=== PATIENT | male | born 1970 | race Caucasian/White ===

== ENCOUNTER 2019-04-18 09:28 | Emergency (ER) | payer BC ==
--- OUTSIDE RECORDS SUMMARY | 2019-04-18 09:43 | XMS REPORT | Continuity of Care Document ---
:1970 External Reference #:[id number] Author Name Sarah Gerardo MD Address [address] [place] [address] Care Team Providers Name Role Phone Sarah Gerardo MD Care Team Information Rn Dermatology Unavailable Payers Date Identification Numbers Payment Provider Subscriber Effective: 2013 Policy Number: [id number] [employer] Connie Pickering PayID: [id number] [address] [address] [place] [address] Problems Active Problems Provider Date Benign prostatic hypertrophy without outflow Sarah Gerardo MD Onset: 05/2018 obstruction Malignant tumor of colon Sarah Gerardo MD Onset: 06/27/2018 Inactive Problems No current problems or disability Onset: 05/08/2013 Inactive: 06/27/2018 Family History Date Family Member(s) Observation Comments Onset: (age 40 Years) Father Cancer, Bladder Father Diabetes, Adult Onset: (age 65 Years) Father Aneurysm, Abdominal Father Heart valve replacement Mother Diabetes, Adult Mother Hypertension Mother Hypercholesterolemia Mother Fibromyalgia First Son No Current Problems Second Son No Current Problems Social History Type Date Description Comments Sex Unknown Marital Status Occupation [employer] , coordinator of shipping ETOH Use Denies alcohol use Tobacco Use Start: Unknown Patient has never smoked Smoking Status Reviewed: 06/27/18 Patient has never smoked Allergies, Adverse Reactions, Alerts Description No Known Drug Allergies Medications Active Medications SIG Qnty Indications Ordering Provider Date Metatarsal Stress RIGHT foot size M79.671 Sarah Gerardo, 03/13/2019 Fracture Boot to fit. Aspirin 81 Low Dose 1 by mouth every Unknown 81mg day Chewtabs Iron High-Potency 1 by mouth a day Unknown 325mg Tablets B Complex 1 by mouth every Unknown Tablets day Fiber qpm-otc Unknown Powder History Medications Amoxicillin/Clavulanate 1 by mouth 20tabs K57.32 [facility], 11/22/2016 - Potassium twice a day Dave, DO 12/02/2016 500-125mg Tablets Metronidazole 1 by mouth Unknown 11/16/2016 - 500mg Tablets twice a day 11/26/2016 Levaquin 1 by mouth 10tabs J15.9 [facility], 04/29/2016 - 500mg Tablets every day Dave, DO 11/16/2016 Cheratussin ac 10ML PO Q 6 236ml J15.9 [facility], 04/29/2016 - 100-10mg/5ML Syrup Hours prn Dave, DO 11/16/2016 Cough Hydrocortisone Apply To Area 60gm [facility], 04/29/2015 - Acetate/Pramoxine tid X 2 Weeks Dave, DO 11/16/2016 1-1% [facility] - Acetate/Pramoxine HCL Rectal Area Dave, DO 04/29/2015 2.5-1&1% Kit tid X 2 Weeks Metoprolol Tartrate 1 by mouth 60tabs [facility], 02/25/2015 - 25mg Tablets twice a day Dave, DO 04/29/2016 Hydrocortisone apply 30units [facility], 05/08/2013 - 2.5% Cream rectally bid Dave, DO 04/29/2015 for 2 weeks Clobetasol Propionate apply to area 60units [facility], 05/08/2013 - 0.05% Cream bid Dave, DO 04/29/2016 Anusol-HC apply 30units [facility], 05/08/2013 - 2.5% Cream rectally bid Dave, DO 06/26/2018 for 2 weeks Clobetasol Propionate apply to area 60units [facility], 05/08/2013 - Emollient bid Dave, DO 06/26/2018 0.05% Cream Ibuprofen 2 po tid prn [facility], 10/31/2009 - 200mg Capsules Dave, DO 06/26/2018 Multi-Day Vitamins 1 po qd [facility], 10/31/2009 - Tablets Dave, DO 11/23/2015 Multi-Day Vitamins 1 po qd [place], 10/31/2009 - Tablets Dave, DO 06/26/2018 Immunizations CPT Code Status Date Vaccine Reaction Lot # [id number] Given 07/15/2018 Flu Vaccine NOS [id number] Given 06/27/2018 Pneumococcal 23 Immunization [id number] Adult Or Immunosuppressed Patient [id number] Given 06/27/2018 Tdap (Adacel) Ages 7 And [id number] Above Only [id number] Given 06/22/2017 Afluria Or Fluvirin Flu Vac Given at ,[facility] [address] Q2035 Given 06/24/2016 Afluria Imunization Given At Pharmacy RA/PW [id number] Refused 06/27/2018 Flu Vaccine NOS WILL GET AT WORK Vital Signs Date Vital Result Comment 04/10/2019 3:20pm Weight 276.00 lb Heart Rate 77 /min BP Systolic 126 mmHg BP Diastolic 88 mmHg Respiratory Rate 18 /min Height 71 inches 5'11" O2 % BldC Oximetry 97 % ra BMI (Body Mass Index) 38.5 kg/m2 03/13/2019 2:40pm Weight 283.00 lb Heart Rate 80 /min BP Systolic 114 mmHg BP Diastolic 76 mmHg Respiratory Rate 16 /min Height 71 inches 5'11" BMI (Body Mass Index) 39.5 kg/m2 06/27/2018 3:33pm Weight 273.00 lb Heart Rate 80 /min BP Systolic 112 mmHg BP Diastolic 74 mmHg Respiratory Rate 16 /min Height 71 inches 5'11" BMI (Body Mass Index) 38.1 kg/m2 11/22/2016 8:28am Weight 325.00 lb Heart Rate 92 /min BP Systolic 118 mmHg L/LG BP Diastolic 74 mmHg L/LG Respiratory Rate 19 /min Height 71.5 inches 2013 BMI (Body Mass Index) 44.7 kg/m2 04/29/2016 2:34pm Body Temperature 99.5 F Weight 323.00 lb Heart Rate 66 /min BP Systolic 128 mmHg BP Diastolic 72 mmHg Respiratory Rate 18 /min O2 % BldC Oximetry 92 % Ra 04/29/2015 3:28pm Weight 312.00 lb Heart Rate 72 /min 80 Reg BP Systolic 140 mmHg BP Diastolic 100 mmHg BP Systolic Recheck 130 mmHg BP Diastolic Recheck 80 mmHg Respiratory Rate 24 /min 02/25/2015 1:39pm Weight 301.00 lb Heart Rate 72 /min 80 Reg BP Systolic 112 mmHg BP Diastolic 70 mmHg BP Systolic Recheck 120 mmHg BP Diastolic Recheck 80 mmHg Respiratory Rate 24 /min O2 Saturation Level with Exercise 97 % Ra 05/21/2014 4:02pm Body Temperature 98.1 F Weight 284.00 lb Heart Rate 68 /min BP Systolic 120 mmHg BP Diastolic 80 mmHg Respiratory Rate 18 /min Height 71.5 inches 5'11.50" 06/14/2013 2:02pm BP Systolic 120 mmHg BP Diastolic 80 mmHg 06/14/2013 2:02pm Weight 324.00 lb Heart Rate 78 /min 72 Reg BP Systolic 120 mmHg BP Diastolic 84 mmHg Respiratory Rate 24 /min Height 71.5 inches 5'11.50" 05/08/2013 2:03pm Weight 318.00 lb Heart Rate 66 /min BP Systolic 130 mmHg BP Diastolic 80 mmHg Respiratory Rate 18 /min 10/31/2009 1:59pm BP Systolic 130 mmHg BP Diastolic 86 mmHg 10/31/2009 1:59pm Weight 322.00 lb Heart Rate 84 /min BP Systolic 136 mmHg BP Diastolic 94 mmHg Respiratory Rate 24 /min Height 72 inches 6'0" Results Test Date Facility Test Result H/L Range Note CBS 04/29/2017 [facility] White Blood 8.9 K/uL N 3.4- 10.5 1 W/Automated (315)- - Count Diff Red Blood Count 5.21 M/uL N 4.20-5.80 Hemoglobin 14.9 gm/dL N 12.8-17.0 Hematocrit 43.1 % N 38.0-48.0 Mean Cell Volume 82.7 fl N 80.0-96.0 Mean Corpuscular HGB 28.6 pg N 27.0-33.0 Mean Corpuscular HGB Conc 34.6 g/dL N 31.7-36.0 Platelet Count 237 K/uL N 150-400 Red Cell Distri Width SD 45.5 fl N 36-51 Red Cell Distri Width %CV 15.1 % N 11.6-15.8 Mean Platelet Volume 10.4 fL N 6.6-10.6 Neut% 73.7 % High 33.0-73.0 Lymph % 17.0 % Low 20.0-42.0 [place] % 6.6 % N 0.0-10.0 Eo% 2.5 % N 0.0-6.6 Bas% 0.2 % N 0.0-1.1 Neut# 6.54 K/uL N 1.8-7.0 Lymph # 1.51 K/uL N 1.0-4.0 [place] # 0.59 K/uL N 0.0-0.8 Eos # 0.22 K/uL N 0.0-0.5 Baso # 0.02 K/uL N 0.0-0.1 Iron-Tibc-%Sat 04/29/2017 [facility] Serum Iron 38 g/ dL Low 65-175 (315)- - Total Iron Binding Capacity 282 g/dL N 250-450 Transferrin %Saturation 13 % N 12-57 Laboratory test finding 04/29/2017 [facility] Ferritin 22 ng/mL Low 26-388 (315)- - Comprehensive Metabolic 04/29/2017 [facility] Glucose 104 mg/dL N 74-106 Panel (315)- - BUN 18 mg/dL N 7-18 Creatinine 1.0 mg/dL N 0.6-1.3 Glom Filtration Rate, Estimate >60 mL/min >60 If >60 mL/min >60 2 BUN/Creat 18.0 ratio Sodium 139 mmol/L N 136-145 Potassium 3.4 mmol/L Low 3.5-5.1 Chloride 104 mmol/L N 98-107 Carbon Dioxide 27 mmol/L N 21-32 Anion Gap 8 mEq/L N 8-16 Calcium 8.9 mg/dL N 8.5-10.1 Total Protein 7.2 g/dL N 6.4-8.2 Albumin 3.5 g/dL N 3.4-5.0 Globulin 3.7 g/dL N 1.9-4.3 Alb/Glob 0.9 ratio Bilirubin,Total 0.6 mg/dL N 0.2-1.0 Sgot/Ast 17 U/L N 15-37 SGPT/Alt 24 U/L N 12-78 Alkaline Phosphatase 92 U/L N 45-117 Laboratory test finding 04/29/2017 [facility] Cea 0.5 ng/ mL 3 (315)- - Basic Metabolic Panel 01/04/2017 [facility] Glucose 74 mg /dL N 74-106 4 (315)- - BUN 7 mg/dL N 7-18 Creatinine 0.8 mg/dL N 0.6-1.3 Glom Filtration Rate, Estimate >60 mL/min >60 If >60 mL/min >60 5 BUN/Creat 8.7 ratio Sodium 141 mmol/L N 136-145 Potassium 3.5 mmol/L N 3.5-5.1 Chloride 103 mmol/L N 98-107 Carbon Dioxide 31 mmol/L N 21-32 Anion Gap 7 mEq/L Low 8-16 Calcium 8.3 mg/dL Low 8.5-10.1 Laboratory test 01/04/2017 [facility] Phosphorous 1.6 mg/ dL Low 2.5-4.0 finding (315)- - Magnesium 2.3 mg/dL N 1.8-2.4 Basic Metabolic Panel 01/03/2017 [facility] Glucose 116 mg/dL High 74-106 (315)- - BUN 8 mg/dL N 7-18 Creatinine 0.9 mg/dL N 0.6-1.3 Glom Filtration Rate, Estimate >60 mL/min >60 If >60 mL/min >60 6 BUN/Creat 8.8 ratio Sodium 141 mmol/L N 136-145 Potassium 3.3 mmol/L Low 3.5-5.1 Chloride 104 mmol/L N 98-107 Carbon Dioxide 29 mmol/L N 21-32 Anion Gap 8 mEq/L N 8-16 Calcium 7.9 mg/dL Low 8.5-10.1 CBC 01/03/2017 [facility] White Blood Count 10.3 K/uL N 3.4-10.5 (315)- - Red Blood Count 4.32 M/uL N 4.20-5.80 Hemoglobin 12.2 gm/dL Low 12.8-17.0 Hematocrit 36.5 % Low 38.0-48.0 Mean Cell Volume 84.5 fl N 80.0-96.0 Mean Corpuscular HGB 28.2 pg N 27.0-33.0 Mean Corpuscular HGB Conc 33.4 g/dL N 31.7-36.0 Platelet Count 191 K/uL N 150-400 Red Cell Distri Width %CV 15.1 % N 11.6-15.8 Mean Platelet Volume 10.5 fL N 6.6-10.6 CBC 01/02/2017 [facility] White Blood Count 10.3 K/uL N 3.4-10.5 (315)- - Red Blood Count 4.12 M/uL Low 4.20-5.80 Hemoglobin 11.7 gm/dL Low 12.8-17.0 Hematocrit 34.9 % Low 38.0-48.0 Mean Cell Volume 84.7 fl N 80.0-96.0 Mean Corpuscular HGB 28.4 pg N 27.0-33.0 Mean Corpuscular HGB Conc 33.5 g/dL N 31.7-36.0 Platelet Count 182 K/uL N 150-400 Red Cell Distri Width %CV 15.2 % N 11.6-15.8 Mean Platelet Volume 10.2 fL N 6.6-10.6 Comprehensive Metabolic 01/02/2017 [facility] Glucose 106 mg/dL N 74-106 Panel (315)- - BUN 10 mg/dL N 7-18 Creatinine 1.0 mg/dL N 0.6-1.3 Glom Filtration Rate, Estimate >60 mL/min >60 If >60 mL/min >60 7 BUN/Creat 10.0 ratio Sodium 142 mmol/L N 136-145 Potassium 3.2 mmol/L Low 3.5-5.1 Chloride 104 mmol/L N 98-107 Carbon Dioxide 29 mmol/L N 21-32 Anion Gap 9 mEq/L N 8-16 Calcium 7.6 mg/dL Low 8.5-10.1 Total Protein 5.4 g/dL Low 6.4-8.2 Albumin 2.6 g/dL Low 3.4-5.0 Globulin 2.8 g/dL N 1.9-4.3 Alb/Glob 0.9 ratio Bilirubin,Total 1.1 mg/dL High 0.2-1.0 Sgot/Ast 35 U/L N 15-37 SGPT/Alt 22 U/L N 12-78 Alkaline Phosphatase 53 U/L N 45-117 Comprehensive Metabolic 01/01/2017 [facility] Glucose 135 mg/dL High 74-106 Panel (315)- - BUN 13 mg/dL N 7-18 Creatinine 1.1 mg/dL N 0.6-1.3 Glom Filtration Rate, Estimate >60 mL/min >60 If >60 mL/min >60 8 BUN/Creat 11.8 ratio Sodium 143 mmol/L N 136-145 Potassium 3.7 mmol/L N 3.5-5.1 Chloride 105 mmol/L N 98-107 Carbon Dioxide 29 mmol/L N 21-32 Anion Gap 9 mEq/L N 8-16 Calcium 7.6 mg/dL Low 8.5-10.1 Total Protein 5.7 g/dL Low 6.4-8.2 Albumin 2.7 g/dL Low 3.4-5.0 Globulin 3.0 g/dL N 1.9-4.3 Alb/Glob 0.9 ratio Bilirubin,Total 1.3 mg/dL High 0.2-1.0 Sgot/Ast 37 U/L N 15-37 SGPT/Alt 24 U/L N 12-78 Alkaline Phosphatase 62 U/L N 45-117 Laboratory test 01/01/2017 [facility] Lipase 54 U/L Low 73-393 finding (315)- - CBS W/Automated 01/01/2017 [facility] White Blood 10.9 K/ uL High 3.4-10.5 Diff (315)- - Count Red Blood Count 4.89 M/uL N 4.20-5.80 Hemoglobin 13.9 gm/dL N 12.8-17.0 Hematocrit 40.3 % N 38.0-48.0 Mean Cell Volume 82.4 fl N 80.0-96.0 Mean Corpuscular HGB 28.4 pg N 27.0-33.0 Mean Corpuscular HGB Conc 34.5 g/dL N 31.7-36.0 Platelet Count 234 K/uL N 150-400 Red Cell Distri Width SD 45.2 fl N 36-51 Red Cell Distri Width %CV 15.2 % N 11.6-15.8 Mean Platelet Volume 9.8 fL N 6.6-10.6 9 Neut# 8.74 K/uL High 1.8-7.0 Lymph # 0.96 K/uL Low 1.0-4.0 [place] # 1.14 K/uL High 0.0-0.8 Eos # 0.00 K/uL N 0.0-0.5 Baso # 0.01 K/uL N 0.0-0.1 Slide Review 01/01/2017 [facility] Slide Review DIFF ORDERED (315)- - Differential-WBC 01/01/2017 [facility] Total Cells 100 # CELLS Confirm (315)- - Counted Band% 6 % N 0-8 Neutrophils% 84 % High 33-73 Lymph% 7 % Low 20-42 Monocyte% 3 % N 0-10 Platelet Estimate NORMAL Anisocytosis 1+ Microcytosis 1+ Differential Comment FEW LRG PLTS SEE <SEE NOTE> 10 CBC 12/31/2016 [facility] White Blood Count 13.5 K/uL High 3.4-10.5 (315)- - Red Blood Count 5.13 M/uL N 4.20-5.80 Hemoglobin 14.6 gm/dL N 12.8-17.0 Hematocrit 42.0 % 38.0-48.0 Mean Cell Volume 81.9 fl N 80.0-96.0 Mean Corpuscular HGB 28.5 pg N 27.0-33.0 Mean Corpuscular HGB Conc 34.8 g/dL N 31.7-36.0 Platelet Count 220 K/uL N 150-400 Red Cell Distri Width %CV 15.1 % N 11.6-15.8 Mean Platelet Volume 10.1 fL N 6.6-10.6 Comprehensive Metabolic 12/31/2016 [facility] Glucose 180 mg/dL High 74-106 Panel (315)- - BUN 15 mg/dL N 7-18 Creatinine 1.3 mg/dL N 0.6-1.3 Glom Filtration Rate, Estimate >60 mL/min >60 If >60 mL/min >60 11 BUN/Creat 11.5 ratio Sodium 141 mmol/L N 136-145 Potassium 3.8 mmol/L N 3.5-5.1 Chloride 103 mmol/L N 98-107 Carbon Dioxide 26 mmol/L N 21-32 Anion Gap 12 mEq/L N 8-16 Calcium 7.8 mg/dL Low 8.5-10.1 Total Protein 5.9 g/dL Low 6.4-8.2 Albumin 2.9 g/dL Low 3.4-5.0 Globulin 3.0 g/dL N 1.9-4.3 Alb/Glob 1.0 ratio Bilirubin,Total 1.1 mg/dL High 0.2-1.0 Sgot/Ast 21 U/L N 15-37 SGPT/Alt 25 U/L N 12-78 Alkaline Phosphatase 66 U/L N 45-117 Ua RFX Micro & 11/27/2016 [facility] Urine Color YELLOW Yellow 12 Culture II (315)- - Urine Clarity CLEAR Clear Urine Glucose - Dipstick NEGATIVE mg/dL Negative Urine Bilirubin - Dipstick NEGATIVE Negative Urine Ketone TRACE mg/dL High Negative Urine Specific [place] 1.015 N 1.010-1.030 Urine Blood NEGATIVE Negative Urine PH 6.5 N 6.5-7.5 Urine Protein - Dipstick NEGATIVE mg/dL Negative Urine Urobilinogen - Dipstick 0.2 E.U./dL N 0.2-1.0 Urine Nitrite - Dipstick NEGATIVE Negative Urine Leuk Esterase NEGATIVE Negative Source: URINE, CLEAN CAT <SEE NOTE> 13 Comprehensive Metabolic 11/27/2016 [facility] Glucose 105 mg/dL N 74-106 Panel (315)- - BUN 14 mg/dL N 7-18 Creatinine 1.1 mg/dL N 0.6-1.3 Glom Filtration Rate, Estimate >60 mL/min >60 If >60 mL/min >60 14 BUN/Creat 12.7 ratio Sodium 140 mmol/L N 136-145 Potassium 3.3 mmol/L Low 3.5-5.1 Chloride 104 mmol/L N 98-107 Carbon Dioxide 27 mmol/L N 21-32 Anion Gap 9 mEq/L N 8-16 Calcium 8.7 mg/dL N 8.5-10.1 Total Protein 7.0 g/dL N 6.4-8.2 Albumin 3.8 g/dL N 3.4-5.0 Globulin 3.2 g/dL N 1.9-4.3 Alb/Glob 1.2 ratio Bilirubin,Total 0.9 mg/dL N 0.2-1.0 Sgot/Ast 18 U/L N 15-37 SGPT/Alt 32 U/L N 12-78 Alkaline Phosphatase 78 U/L N 45-117 Laboratory test 11/27/2016 [facility] Lipase 95 U/L N 73-393 finding (315)- - CBS W/Automated 11/27/2016 [facility] White Blood 10.4 K/ uL N 3.4-10.5 Diff (315)- - Count Red Blood Count 5.68 M/uL N 4.20-5.80 Hemoglobin 16.0 gm/dL N 12.8-17.0 Hematocrit 46.2 % N 38.0-48.0 Mean Cell Volume 81.3 fl N 80.0-96.0 Mean Corpuscular HGB 28.2 pg N 27.0-33.0 Mean Corpuscular HGB Conc 34.6 g/dL N 31.7-36.0 Platelet Count 284 K/uL N 150-400 Red Cell Distri Width SD 44.7 fl N 36-51 Red Cell Distri Width %CV 15.2 % N 11.6-15.8 Mean Platelet Volume 10.1 fL N 6.6-10.6 Neut% 80.9 % High 33.0-73.0 Lymph % 10.0 % Low 20.0-42.0 [place] % 7.5 % N 0.0-10.0 Eo% 1.3 % N 0.0-6.6 Bas% 0.3 % N 0.0-1.1 Neut# 8.40 K/uL High 1.8-7.0 Lymph # 1.04 K/uL N 1.0-4.0 [place] # 0.78 K/uL N 0.0-0.8 Eos # 0.13 K/uL N 0.0-0.5 Baso # 0.03 K/uL N 0.0-0.1 Slide Review 11/27/2016 [facility] Slide Review (SEE NOTE ) 15 (315)- - Comprehensive 11/16/2016 [facility] Glucose 90 mg/dL N 74-106 16 Metabolic Panel (315)- - BUN 18 mg/dL N 7-18 Creatinine 1.1 mg/dL N 0.6-1.3 Glom Filtration Rate, Estimate >60 mL/min >60 If >60 mL/min >60 17 BUN/Creat 16.3 ratio Sodium 141 mmol/L N 136-145 Potassium 3.6 mmol/L N 3.5-5.1 Chloride 103 mmol/L N 98-107 Carbon Dioxide 28 mmol/L N 21-32 Anion Gap 10 mEq/L N 8-16 Calcium 9.0 mg/dL N 8.5-10.1 Total Protein 7.3 g/dL N 6.4-8.2 Albumin 3.5 g/dL N 3.4-5.0 Globulin 3.8 g/dL N 1.9-4.3 Alb/Glob 0.9 ratio Bilirubin,Total 0.6 mg/dL N 0.2-1.0 Sgot/Ast 12 U/L Low 15-37 18 SGPT/Alt 25 U/L N 12-78 Alkaline Phosphatase 91 U/L N 45-117 CBS W/Automated Diff 11/16/2016 [facility] White Blood 9.3 K/uL N 3.4-10.5 (315)- - Count Red Blood Count 5.68 M/uL N 4.20-5.80 Hemoglobin 15.7 gm/dL N 12.8-17.0 Hematocrit 46.6 % N 38.0-48.0 Mean Cell Volume 82.0 fl N 80.0-96.0 Mean Corpuscular HGB 27.6 pg N 27.0-33.0 Mean Corpuscular HGB Conc 33.7 g/dL N 31.7-36.0 Platelet Count 277 K/uL N 150-400 Red Cell Distri Width SD 44.2 fl N 36-51 Red Cell Distri Width %CV 14.9 % N 11.6-15.8 Mean Platelet Volume 10.1 fL N 6.6-10.6 Neut% 75.7 % High 33.0-73.0 Lymph % 14.8 % Low 20.0-42.0 [place] % 6.8 % N 0.0-10.0 Eo% 2.4 % N 0.0-6.6 Bas% 0.3 % N 0.0-1.1 Neut# 7.04 K/uL High 1.8-7.0 Lymph # 1.38 K/uL N 1.0-4.0 [place] # 0.63 K/uL N 0.0-0.8 Eos # 0.22 K/uL N 0.0-0.5 Baso # 0.03 K/uL N 0.0-0.1 Slide Review 11/16/2016 [facility] Slide Review . 19 (315)- - Ua RFX Micro & 11/16/2016 [facility] Urine Color YELLOW Yellow Culture II (315)- - Urine Clarity CLEAR Clear Urine Glucose - Dipstick NEGATIVE mg/dL Negative Urine Bilirubin - Dipstick NEGATIVE Negative Urine Ketone TRACE mg/dL High Negative Urine Specific [place] >=1.030 N 1.010-1.030 Urine Blood NEGATIVE Negative Urine PH 6.0 Low 6.5-7.5 Urine Protein - Dipstick NEGATIVE mg/dL Negative Urine Urobilinogen - Dipstick 0.2 E.U./dL N 0.2-1.0 Urine Nitrite - Dipstick NEGATIVE Negative Urine Leuk Esterase NEGATIVE Negative Source: URINE, CLEAN CAT <SEE NOTE> 20 Basic (BMP) 02/25/2015 [facility] Sodium 140 mmol/L 134-142 Potassium 4.3 mmol/L 3.5-5.2 Chloride 104 mmol/L 97-109 Carbon Dioxide 30 mmol/L 24-34 Glucose 86 mg/dL 70-105 BUN 20 mg/dL 6-26 Creatinine 1.1 mg/dL 0.5-1.4 Calcium 9.2 mg/dL 8.5-10.2 Anion Gap 10 mmol/L 6-14 Non [place]vira Egfr >60 >60 21 Elvira Egfr >60 >60 22 CBC With Auto Diff 02/25/2015 [facility] WBC 5.5 K/uL 4.1-11.0 RBC 5.02 M/uL 4.60-6.10 Hemoglobin 14.7 gm/dL 13.5-18.0 Hematocrit 43.6 % 41.0-53.0 MCV 86.7 fL 80.0-97.0 MCH 29.3 pg 27.0-32.0 MCHC 33.8 g/dL 32.0-36.0 RDW 14.1 % 11.5-14.5 PLT Count 350 K/ul 140-400 Neutrophil 61.9 % 35.0-75.0 Lymphocyte 24.5 % 16.0-52.0 Monocyte 9.2 % 2.0-10.0 Eosinophil 3.7 % 0.0-5.0 Basophil 0.7 % 0.0-4.0 Abs Neutrophils 3.4 K/uL 2.1-8.0 Abs Lymphocytes 1.3 K/uL 0.8-5.5 Abmon 0.5 K/uL 0.1-1.0 Abs Eosinophils 0.2 K/uL 0.0-0.5 Abs Basophils 0.0 K/uL 0.0-0.3 Basic Metabolic Panel 02/19/2015 [facility] Glucose 95 mg /dL 74-106 (315)- - BUN 9 mg/dL 7-18 Creatinine 1.0 mg/dL 0.6-1.3 Glom Filtration Rate, Estimate >60 mL/min >60 If >60 mL/min >60 23 BUN/Creat 9.0 ratio Sodium 142 mmol/L 136-145 Potassium 3.8 mmol/L 3.5-5.1 Chloride 106 mmol/L 98-107 Carbon Dioxide 27 mmol/L 21-32 Anion Gap 9 mEq/L 8-16 Calcium 8.5 mg/dL 8.5-10.1 Streptococcus Pneumoniae 02/18/2015 [facility] Specimen Source Urine . Ag,Ur (315)- - Streptococcus Pneumoniae Ag,Ur NEGATIVE Negative Body Fluid Culture, Sterile Not Indicated . Organism Id Not indicated. . Please Note: See Note 24 Basic Metabolic Panel 02/18/2015 [facility] Glucose 96 mg /dL 74-106 (315)- - BUN 8 mg/dL 7-18 Creatinine 1.0 mg/dL 0.6-1.3 Glom Filtration Rate, Estimate >60 mL/min >60 If >60 mL/min >60 25 BUN/Creat 8.0 ratio Sodium 140 mmol/L 136-145 Potassium 3.6 mmol/L 3.5-5.1 Chloride 109 mmol/L High 98-107 Carbon Dioxide 23 mmol/L 21-32 Anion Gap 8 mEq/L 8-16 Calcium 7.6 mg/dL Low 8.5-10.1 CBC W/Automated Diff 02/18/2015 [facility] White Blood 6.5 K/uL 3.4-10.5 (315)- - Count Red Blood Count 4.16 M/uL Low 4.20-5.80 Hemoglobin 12.2 gm/dL Low 12.8-17.0 Hematocrit 35.4 % Low 38.0-48.0 Mean Cell Volume 85.1 fl 80.0-96.0 Mean Corpuscular HGB 29.3 pg 27.0-33.0 Mean Corpuscular HGB Conc 34.5 g/dL 31.7-36.0 Platelet Count 165 K/uL 150-400 Red Cell Distri Width SD 42.8 fl 36-51 Red Cell Distri Width %CV 14.0 % 11.6-15.8 Mean Platelet Volume 9.8 fL 6.6-10.6 Neut% 74.3 % High 33.0-73.0 Lymph % 12.1 % Low 17.0-56.0 [place] % 11.3 % High 0.0-10.0 Eo% 2.0 % 0.0-5.0 Bas% 0.3 % 0.1-1.0 Neut# 4.85 K/uL 1.8-7.0 Lymph # 0.79 K/uL Low 1.8-7.0 [place] # 0.74 K/uL 0.0-0.8 Eos # 0.13 K/uL 0.0-0.5 Baso # 0.02 K/uL Low 0.1-0.2 Laboratory test 02/18/2015 [facility] Lactic Acid 0.7 mmol/L 0.4-2.0 finding (315)- - Laboratory test 02/17/2015 [facility] Calcium,Ionize 4.7 mg/dL 4.5-5.6 26 finding (315)- - d PTH,Intact 53 pg/mL 15-65 27 Laboratory test 02/17/2015 [facility] Legionella Positive High Negative 28 finding (315)- - Antigen,Urine Urinalysis With 02/17/2015 [facility] Urine Color YELLOW Yellow Microscopic (315)- - Urine Clarity CLEAR Clear Urine Glucose - Dipstick NEGATIVE mg/dL Negative Urine Bilirubin - Dipstick NEGATIVE Negative Urine Ketone TRACE mg/dL High Negative Urine Specific [place] 1.025 1.010-1.030 Urine Blood MODERATE High Negative Urine PH 5.5 Low 6.5-7.5 Urine Protein - Dipstick 30 mg/dL High Negative Urine Urobilinogen - Dipstick 2.0 E.U./dL High 0.2-1.0 Urine Nitrite - Dipstick NEGATIVE Negative Urine Leuk Esterase NEGATIVE Negative Urine RBC 2-5 rbc/hpf 0-2 Urine WBC NONE SEEN wbc/hpf 0-7 Urine Epithelial Cells FEW NONESEEN/lpf Urine Mucus SMALL NONESEEN Urine Amorph Sediment SMALL Negative Urine Screen 02/17/2015 [facility] Urine Screen See Note 29 (315)- - Laboratory test 02/17/2015 [facility] Aot Request See Note 30 finding (315)- - Laboratory test 02/17/2015 [facility] Aot Request See Note 31 finding (315)- - Influenza A & B Ag 02/17/2015 [facility] Influenza A Negative (Negati (315)- - Antigen ve) Influenza B Antigen Negative (Negative) 32 Urine Screen 02/16/2015 [facility] Urine Screen See Note 33 (315)- - Urine Culture 02/16/2015 [facility] Urine Culture See Note 34 (315)- - Blood Culture 02/16/2015 [facility] Blood Culture See Note 35 (315)- - Aerobic Blood Culture Anaerobic See Note 36 Urinalysis With 02/16/2015 [facility] Urine Color STRAW Yellow Microscopic (315)- - Urine Clarity CLEAR Clear Urine Glucose - Dipstick NEGATIVE mg/dL Negative Urine Bilirubin - Dipstick SMALL High Negative Urine Ketone TRACE mg/dL High Negative Urine Specific [place] 1.025 1.010-1.030 Urine Blood MODERATE High Negative Urine PH 6.0 Low 6.5-7.5 Urine Protein - Dipstick 100 mg/dL High Negative Urine Urobilinogen - Dipstick 4.0 E.U./dL High 0.2-1.0 Urine Nitrite - Dipstick NEGATIVE Negative Urine Leuk Esterase NEGATIVE Negative Urine RBC 2-5 rbc/hpf 0-2 Urine WBC 0-2 wbc/hpf 0-7 Urine Epithelial Cells FEW NONESEEN/lpf Urine Mucus SMALL NONESEEN Urine Amorph Sediment SMALL Negative Blood Culture 02/16/2015 [facility] Blood Culture See Note 37 (315)- - Aerobic Blood Culture Anaerobic See Note 38 CBC W/Automated Diff 02/16/2015 [facility] White Blood 10.2 K/uL 3.4-10.5 (315)- - Count Red Blood Count 4.71 M/uL 4.20-5.80 Hemoglobin 14.3 gm/dL 12.8-17.0 Hematocrit 39.9 % 38.0-48.0 Mean Cell Volume 84.7 fl 80.0-96.0 Mean Corpuscular HGB 30.4 pg 27.0-33.0 Mean Corpuscular HGB Conc 35.8 g/dL 31.7-36.0 Platelet Count 187 K/uL 150-400 Red Cell Distri Width SD 42.6 fl 36-51 Red Cell Distri Width %CV 13.9 % 11.6-15.8 Mean Platelet Volume 9.8 fL 6.6-10.6 Neut% 84.6 % High 33.0-73.0 Lymph % 6.0 % Low 17.0-56.0 [place] % 9.0 % 0.0-10.0 Eo% 0.1 % 0.0-5.0 Bas% 0.3 % 0.1-1.0 Neut# 8.62 K/uL High 1.8-7.0 Lymph # 0.61 K/uL Low 1.8-7.0 [place] # 0.92 K/uL High 0.0-0.8 Eos # 0.01 K/uL 0.0-0.5 Baso # 0.03 K/uL Low 0.1-0.2 Laboratory test 02/16/2015 [facility] Magnesium 1.7 mg/ dL Low 1.8-2.4 finding (315)- - CK 157 U/L 39-308 Troponin-I < 0.015 ng/mL 39 Lactic Acid 1.1 mmol/L 0.4-2.0 Comprehensive Metabolic 02/16/2015 [facility] Glucose 125 mg/dL High 74-106 Panel (315)- - BUN 18 mg/dL 7-18 Creatinine 1.4 mg/dL High 0.6-1.3 Glom Filtration Rate, Estimate 59 mL/min >60 If >60 mL/min >60 40 BUN/Creat 12.8 ratio Sodium 135 mmol/L Low 136-145 Potassium 3.3 mmol/L Low 3.5-5.1 Chloride 100 mmol/L 98-107 Carbon Dioxide 24 mmol/L 21-32 Anion Gap 11 mEq/L 8-16 Calcium 7.7 mg/dL Low 8.5-10.1 Total Protein 6.9 g/dL 6.4-8.2 Albumin 3.1 g/dL Low 3.4-5.0 Globulin 3.8 g/dL 1.9-4.3 Alb/Glob 0.8 ratio Bilirubin,Total 1.4 mg/dL High 0.2-1.0 Sgot/Ast 24 U/L 15-37 SGPT/Alt 33 U/L 12-78 Alkaline Phosphatase 76 U/L 45-117 Laboratory test finding 06/14/2013 N2N/CCD Import % Baso. 0.8 % 0.0-2.0 % Eos. 2.6 % 0.0-4.0 % Lymph 23 % 20-44 % [place] 8.4 % 2.0-10.0 % Raul 65 % 50-70 A/G Ratio 1.8 ratio 1.6-2.2 Absolute Baso. 0.1 K/ul 0.0-0.3 Absolute Eos. 0.2 K/ul 0.0-0.5 Absolute Lymph. 1.7 K/ul 0.8-4.8 Absolute [place]. 0.6 K/ul 0.1-1.0 Absolute Raul. 4.68 K/ul 2.05-7.63 Albumin 4.2 g/dL 3.5-5.0 Alk. Phos. 70.0 U/L 30.0-126.0 Alt 25.0 U/L 21.0-72.0 Anion Gap 14.0 mmol/L 10.0-20.0 Ast 17.0 U/L 17.0-59.0 BUN 20.0 mg/dL 9.0-21.0 BUN/Creat Ratio 20.0 ratio 12.0-20.0 Calcium 9.6 mg/dL 8.7-10.5 Chloride 107.0 mmol/L 98.0-107.0 Co2 24.0 mmol/L 22.0-30.0 Creatinine-Serum 1.0 mg/dL 0.8-1.5 Globulin 2.4 g/dL Low 2.7-4.3 Glucose 86.0 mg/dL 75.0-110.0 HCT 47.3 % 37.0-51.0 HGB 15.0 Gm/dl 12.0-16.0 MCH 28.0 pg 26.0-32.0 MCHC 31.8 g/dL 31.0-36.0 MCV 88.2 Fl 80.0-97.0 MPV 7.0 fL 6.0-10.0 PLT 278 K/ul 140-440 Potasium 3.8 mmol/L 3.6-5.0 RBC 5.4 M/ul 4.2-6.3 RDW 12.7 % 11.5-14.5 Sodium 145.0 mmil/L 137.0-145.0 TSH 1.53 uIU/ml 0.50-6.00 Total Bilirubin 0.7 mg/dL 0.2-1.3 Total Protein 6.6 g/dL 6.3-8.2 Vitamin D 29.4 ng/mL Low 30.0-100.0 WBC 7.2 K/ul 4.1-10.9 eGFR 83.5 mi/minper1.73 41 Lipid Panel 06/14/2013 N2N/CCD Import Chol/HDL Ratio 4.8 ratio Cholesterol 177.0 mg/dL 50.0-199.0 HDL 37.0 mg/dL Low 40.0-67.0 LDL, Calculated 90.4 mg/dL 20.0-129.0 Triglycerides 248.0 mg/dL High 30.0-150.0 vLDL 49.6 ng/dL Laboratory test finding 10/31/2009 N2N/CCD Import A/G Ratio 1.4 1.0-2.2 42 Absolute Basophils 0.049 K/ul 0.0-0.3 Absolute Eosinophils 0.182 K/ul 0.0-0.5 Absolute Lymphocytes 1.89 K/ul 0.8-4.8 Absolute Monocytes 0.481 K/ul 0.1-1.0 Absolute Neutrophils 3.52 K/ul 2.05-7.63 Albumin 4.2 g/dL 3.5-5.0 Alkaline Phosphatase 96 U/L 30-126 Alt 28 U/L 21-72 Ast 26 U/L 17-59 BUN 18 mg/dL 9-21 BUN/CR Ratio 16.8 Ratio 12-20 Basophil 0.8 % 0-2 Calcium 9.6 mg/dL 8.7-10.5 Carbon Dioxide 32 mmol/L High 22-30 Chloride 100 mmol/L 98-107 Creatinine, Serum 1.1 mg/dL 0.8-1.5 Eosinophil 3.0 % 0-4 Globulin 2.9 g/dL 2.7-4.3 Glucose 83 mg/dL 75-110 Hematocrit 46.3 % 37.0-51.0 Hemoglobin 16.2 GM/dl High 12.0-16.0 Lymphocytes 30.8 % 20-44 MCH 29.8 pg 26.0-32.0 MCHC 34.9 g/dL 31.0-36.0 MCV 85 FL 80-97 Monocytes 7.9 % 2-10.0 Neutrophils 57.5 % 50-70 Platelet Count 252 K/ul 140-440 Potassium 4.0 mmol/L 3.6-5.0 RBC 5.43 M/ul 4.2-6.3 RDW 12.1 % 11.5-14.5 Sodium 140 mmol/L 137-145 TSH 1.965 uIU/ml 0.50-6.00 Total Bilirubin 0.8 mg/dL 0.2-1.3 Total Protein 7.1 g/dL 6.3-8.2 Vitamin D,25-Hydroxy 24.1 ng/mL Low 32.0-100.0 43 WBC 6.1 K/ul 4.1-10.9 Lipid Panel 10/31/2009 N2N/CCD Import Chol/HDL Ratio 4.9 44 Cholesterol 192 mg/dL 50-199 HDL Cholesterol 39 mg/dL Low 40-67 LDL 113 mg/dL 20-129 Triglycerides 201 mg/dL High 30-150 VLDL Cholesterol 40 mg/dL 1 C18.6 2 Note: Persistent reduction for 3 months or more in an eGFR <60 mL/min/1.73 m2 defines CKD. Patients with eGFR values >/=60 mL/min/1.73 m2 may also have CKD if evidence of persistent proteinuria is present. The original MDRD equation for estimated GFR is not valid for patients less than 18 years of age. Additional information may be found at [email or web address]. 3 Non-smokers ..... 0.0-3.0 ng/mL Smokers ......... 0.0-5.0 ng/mL THIS ASSAY IS NOT INTENDED A CANCER SCREENING TEST The concentration of CEA in a given specimen, determined with assays from different manufacturers, can vary due to differences in assay methods and reagent specificity. Values obtained from different assay methods cannot be used interchangeably. Method: [place] Chemiluminescent Immunoassay 4 SPLENIC FLEXURE COLON CANCER 5 Note: Persistent reduction for 3 months or more in an eGFR <60 mL/min/1.73 m2 defines CKD. Patients with eGFR values >/=60 mL/min/1.73 m2 may also have CKD if evidence of persistent proteinuria is present. The original MDRD equation for estimated GFR is not valid for patients less than 18 years of age. Additional information may be found at www.[email or web address]. 6 Note: Persistent reduction for 3 months or more in an eGFR <60 mL/min/1.73 m2 defines CKD. Patients with eGFR values >/=60 mL/min/1.73 m2 may also have CKD if evidence of persistent proteinuria is present. The original MDRD equation for estimated GFR is not valid for patients less than 18 years of age. Additional information may be found at www.[email or web address]. 7 Note: Persistent reduction for 3 months or more in an eGFR <60 mL/min/1.73 m2 defines CKD. Patients with eGFR values >/=60 mL/min/1.73 m2 may also have CKD if evidence of persistent proteinuria is present. The original MDRD equation for estimated GFR is not valid for patients less than 18 years of age. Additional information may be found at [email or web address]. 8 Note: Persistent reduction for 3 months or more in an eGFR <60 mL/min/1.73 m2 defines CKD. Patients with eGFR values >/=60 mL/min/1.73 m2 may also have CKD if evidence of persistent proteinuria is present. The original MDRD equation for estimated GFR is not valid for patients less than 18 years of age. Additional information may be found at [email or web address]. 9 01/01/17 0624: NEUT% previously reported as: 80.6 H % Amended result called to: [] - 01/01/17 at 0624 01/01/17 0624: LYMPH % previously reported as: 8.8 L % Amended result called to: [] 01/01/17 at 0624 01/01/17 0624: MONO % previously reported as: 10.5 H % Amended result called to: [] 01/01/17 at 0624 01/01/17 0624: EO% previously reported as: 0.0 % Amended result called to: [] 01/01/17 at 0624 01/01/17 0624: BAS% previously reported as: 0.1 % Amended result called to: [] - 01/01/17 at 0624 10 FEW LRG PLTS SEEN 11 Note: Persistent reduction for 3 months or more in an eGFR <60 mL/min/1.73 m2 defines CKD. Patients with eGFR values >/=60 mL/min/1.73 m2 may also have CKD if evidence of persistent proteinuria is present. The original MDRD equation for estimated GFR is not valid for patients less than 18 years of age. Additional information may be found at [email or web address]. 12 ABDOMINAL PAIN 13 URINE, CLEAN CATCH 14 Note: Persistent reduction for 3 months or more in an eGFR <60 mL/min/1.73 m2 defines CKD. Patients with eGFR values >/=60 mL/min/1.73 m2 may also have CKD if evidence of persistent proteinuria is present. The original MDRD equation for estimated GFR is not valid for patients less than 18 years of age. Additional information may be found at [email or web address]. 15 Instrument flagged sample for slide review. Less than 10% Bands seen, no other immature WBC's seen. RBC morphology essentially normal. Platelet estimate=Normal 16 ABDOMINAL PAIN X2 DAYS 17 Note: Persistent reduction for 3 months or more in an eGFR <60 mL/min/1.73 m2 defines CKD. Patients with eGFR values >/=60 mL/min/1.73 m2 may also have CKD if evidence of persistent proteinuria is present. The original MDRD equation for estimated GFR is not valid for patients less than 18 years of age. Additional information may be found at [email or web address]. 18 Values below the stated reference ranges of AST and ALT can be seen in normal populations. Clinical correlation is suggested. 19 Instrument flagged sample for slide review. Less than 10% Bands seen, no other immature WBC's seen. RBC morphology essentially normal. Platelet estimate=NORMAL 20 URINE, CLEAN CATCH 21 Concerning GFR Guidelines: Normal function or mild renal disease, if clinically at risk: >/=60 mL/min Moderately decreased: 30-59 Severely decreased: 15-29 Renal failure: <15 Glomerular Filtration Rate (GFR) is estimated based on the MDRD equation, which assumes a steady state for creatinine as recommended by the National Kidney Disease Education Program in conjunction with the National Institutes of Health and the National Kidney Foundation. Clinical conditions in which it may be necessary to measure GFR by using clearance methods include extremes of age and body size, severe malnutrition or obesity, diseases of skeletal muscle, paraplegia or quadriplegia, vegetarian diet, rapidly changing kidney function, and calculation of the dose of potentially toxic drugs that are excreted by the kidneys. 22 Concerning GFR Guidelines for Americans: Normal function or mild renal disease, if clinically at risk: >/=60 mL/min Moderately decreased: 30-59 Severely decreased: 15-29 Renal failure: <15 23 Note: Persistent reduction for 3 months or more in an eGFR <60 mL/min/1.73 m2 defines CKD. Patients with eGFR values >/=60 mL/min/1.73 m2 may also have CKD if evidence of persistent proteinuria is present. The original MDRD equation for estimated GFR is not valid for patients less than 18 years of age. Additional information may be found at www.[email or web address]. 24 [employer] [place] [employer] guidelines require a culture to be performed on CSF specimens negative by bacterial antigen testing (CAP [id number]). Performed at: [address] [id number] Office Inspector: Grant Kessler MD, Phone: [phone] 25 Note: Persistent reduction for 3 months or more in an eGFR <60 mL/min/1.73 m2 defines CKD. Patients with eGFR values >/=60 mL/min/1.73 m2 may also have CKD if evidence of persistent proteinuria is present. The original MDRD equation for estimated GFR is not valid for patients less than 18 years of age. Additional information may be found at [email or web address]. 26 Performed at: [address] [id number] Office Inspector: Concetta Cooper MD, Phone: [phone] Performed at: [address] [id number] Office Inspector: Concetta Cooper MD, Phone: [phone] REPORTED POS L. PNEUM UR AG TO NOMI Tompkins AT 1412 ON 02-19-15 FAXED TO: [phone] Performed at: [address] [id number] Office Inspector: Grant Kessler MD, Phone: [phone] 02/17/15 LAB.DWM Deleted by [facility] 30 Unable to add tests Tests: IONIZED CALCIUM Instructions: 31 Unable to add tests Tests: PTH Instructions: 32 Please Note: A POSITIVE result for influenza A and/or B antigen does not rule out a co-infection with other pathogens or identify any specific influenza A virus subtype. A NEGATIVE result for influenza A and/or B antigen does not preclude influenza virus infection and should not be the sole basis for treatment or other management decisions, since the antigen present in the specimen may be below the detection limit of the test. A NEGATIVE result is PRESUMPTIVE and it is recommended these results be confirmed by virus culture or an FDA-cleared influenza A and B molecular assay. 33 02/16/15 LAB.DWM Deleted by [facility] 34 NO GROWTH: FINAL REPORT 35 NO GROWTH: FINAL REPORT 36 NO GROWTH: FINAL REPORT 37 NO GROWTH: FINAL REPORT 38 NO GROWTH: FINAL REPORT 39 0.0 - 0.045 ng/mL: Normal 0.046 - 0.5 ng/mL: Suggestive 0.6 - 1.5 ng/mL: Consistent 40 Note: Persistent reduction for 3 months or more in an eGFR <60 mL/min/1.73 m2 defines CKD. Patients with eGFR values >/=60 mL/min/1.73 m2 may also have CKD if evidence of persistent proteinuria is present. The original MDRD equation for estimated GFR is not valid for patients less than 18 years of age. Additional information may be found at www.kdoqi.org. 41 For -[place] patients multiply result by 1.180 42 FASTING 43 Recent studies consider the lower limit of 32.0 ng/mL to be a threshold for optimal health. Scott CUEVAS. J Nutr. 2004;135(2):317-22. 44 Normal Range: Male: <4.98 Female: <4.45 Procedures Date Code Description Status 01/27/2018 87770124 Colonoscopy Completed 04/29/2016 27584 X-Ray Chest Two Views Frontal & Lateral Completed 03/19/2015 93755 X-Ray Chest Two Views Frontal & Lateral Completed Encounters Type Date Location Provider Dx Diagnosis Office Visit 03/13/2019 [facility] Sarah Gerardo MD M79.671 Pain in RIGHT foot 2:30p E66.9 Obesity, unspecified Z68.39 Body mass index (BMI) 39.0-39.9, adult Office Visit 06/27/2018 3:30p [facility] Sarah Gerardo MD Z00.01 Encounter for general adult medical exam w abnormal findings N40.0 Benign prostatic hyperplasia without lower urinry tract symp C18.9 Malignant neoplasm of colon, unspecified Z23 Encounter for immunization Z87.01 Personal history of pneumonia (recurrent) E66.9 Obesity, unspecified M65.861 Other synovitis and tenosynovitis, RIGHT lower leg Z68.38 Body mass index (BMI) 38.0-38.9, adult Office Visit 11/22/2016 8:30a [facility] Dave Newman DO 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 K62.5 Hemorrhage of anus and rectum Z68.41 Body mass index (BMI) 40.0-44.9, adult Office Visit 04/29/2016 2:30p [facility] Dave Newman DO R05 Cough J15.9 Unspecified bacterial pneumonia Office Visit 04/29/2015 3:15p [facility] Dave Newman DO 482.9 Pneumonia Due To Bacterial Infection Unspec 785.0 Tachycardia Unspec 285.9 Anemia Unspec Office Visit 02/25/2015 1:30p [facility] Dave Newman DO 482.9 Pneumonia Due To Bacterial Infection Unspec 276.51 Dehydration 285.9 Anemia Unspec 785.0 Tachycardia Unspec Plan of Treatment Future Appointment(s):05/08/2019 4:00 pm - Sarah Gerardo MD at [facility]2018 7:30 am - Schedule, Laboratory at [facility]07/02/2019 3:30 pm - Sarah Gerardo MD at [facility]04/10/2019 - Sarah Gerardo, MDM79.671 Pain in RIGHT footComments:clinical diagnosis stress fractureFollow up:next visit in 4-5 weeks fu foot pain oc15, ok for blocked triage (no more than 2 x 415)M84.374A Stress fracture, RIGHT foot, initial encounter for fractureComments:clinical diagnosis of right foot 5th metatarsal stress fracture Recommend you wear a walking boot until this heals, wear the boot all the time except when in the shower or in bed. This fracture will take at least 6weeks to heal, it's been 4 weeks and is better but not alot better so suspect it will take 8 weeks. In some cases it may take 3mo.Limit your activites to avoid pain. Discussed options of referral to ortho or construction cost estimator aswell. Recheck in another 4 weeks and if not alot better at that point next step will be MRIE66.9 Obesity, unspecifiedComments:continue to work on diet, exercise, weight loss great job! Z68.39 Body mass index (BMI) 39.0-39.9, adultComments:Encouraged healthy calorie reduced diet and regular exercise.Z68.38 Body mass index (BMI) 38.0-38.9 , adultComments:continue to work on healthy lower calorie diet with regular exercise to work towards weight loss
[2019-04-18 09:48] VITALS: BP 110/73
--- NOTE | 2019-04-25 14:29 | UC ---
Skin Complaint HPI - HPI Summary HPI Summary: 48 yo male with the onset of itchy/painful rash left arm after doing yard work - History of Current Complaint Chief Complaint: UCRash Time Seen by Provider: 04/18/19 09:42 Stated Complaint: SKIN COMPLAINT Hx Obtained From: Patient Onset/Duration: Sudden Onset Skin Exposure Onset/Duration: Days Ago Timing: Constant Onset Severity: Mild Current Severity: Moderate Pain Intensity: 0 Pain Scale Used: 0-10 Numeric Location: Discrete Character: Swelling, Pruritus, Redness Aggravating Factor(s): Nothing Alleviating Factor(s): Nothing Associated Signs & Symptoms: Positive: Negative - Allergy/Home Medications Allergies/Adverse Reactions: Allergies Allergy/AdvReac Type Severity Reaction Status Date / Time No Known Allergies Allergy Verified 04/18/19 09:44 Home Medications: Home Medications Aspirin EC TAB* [Ecotrin EC Low Dose 81 MG*] 81 mg PO DAILY 04/18/19 [History Confirmed 04/18/19] Ferrous Sulfate TAB* 325 mg PO DAILY 04/18/19 [History Confirmed 04/18/19] Psyllium Husk (with Sugar) [Fiber Therapy Powder] 368 gm PO DAILY 04/18/19 [ History Confirmed 04/18/19] PMH/Surg Hx/FS Hx/Imm Hx Previously Healthy: Yes - Surgical History Surgical History: Yes Surgery Procedure, Year, and Place: Colon Resection, [place] - Family History Known Family History: Positive: Hypertension, Non-Contributory - Social History Alcohol Use: None Substance Use Type: None Smoking Status (MU): Never Smoked Tobacco Review of Systems All Other Systems Reviewed And Are Negative: Yes Constitutional: Positive: Negative Skin: Positive: Rash Eyes: Positive: Negative ENT: Positive: Negative Respiratory: Positive: Negative Cardiovascular: Positive: Negative Gastrointestinal: Positive: Negative Genitourinary: Positive: Negative Motor: Positive: Negative Neurovascular: Positive: Negative Musculoskeletal: Positive: Negative Neurological: Positive: Negative Psychological: Positive: Negative Physical Exam Triage Information Reviewed: Yes Appearance: Well-Appearing, No Pain Distress, Well-Nourished Vital Signs: Initial Vital Signs Temp 97.7 F 04/18/19 09:43 Pulse 62 04/18/19 09:43 Resp 16 04/18/19 09:43 BP 110/73 04/18/19 09:43 Pulse Ox 99 04/18/19 09:43 Vital Signs Reviewed: Yes Eyes: Positive: Conjunctiva Clear ENT: Positive: Hearing grossly normal. Negative: Nasal congestion, Nasal drainage, Trismus, Muffled voice, Hoarse voice Neck: Positive: Supple Respiratory: Positive: Lungs clear, Normal breath sounds, No respiratory distress, No accessory muscle use Cardiovascular: Positive: RRR, No Murmur Musculoskeletal: Positive: ROM Intact, No Edema Neurological: Positive: Alert Psychological Exam: Normal Skin Exam: Other - rash left arm c/w contact dermatitis Course/Dx - Diagnoses Provider Diagnosis: Contact dermatitis Discharge - Sign-Out/Discharge Documenting (check all that apply): Patient Departure All imaging exams completed and their final reports reviewed: No Studies - Discharge Plan Condition: Stable Disposition: HOME Prescriptions: Cephalexin CAP* [Keflex CAP*] 500 mg PO QID #28 cap Triamcinolone 0.5% CREAM(NF) [Triamcinolone 0.5% CREAM*] 1 applic TOPICAL QID # 30 tube Patient Education Materials: Contact Dermatitis (DC) Referrals: Sarah Gerardo MD [Primary Care Provider] - - Billing Disposition and Condition Condition: STABLE Disposition: Home
== END 2019-04-18 12:25 | disposition home or self-care (01) ==
LOC: UCCORT 09:28
DX: L25.9 Unspecified contact dermatitis, unspecified cause (principal); Z79.82 Long term (current) use of aspirin
CPT/HCPCS: 99202; G0463